=== PATIENT | male | born 1960 | race Caucasian/White ===

== ENCOUNTER 2020-02-01 01:44 | Emergency (ER) | payer OTHER ==
[2020-02-01] MEDS ORDERED: Sodium Chloride Irrig Solution 250 ML ONE (02:07)
== END 2020-02-01 02:16 ==
LOC: MADERS 01:44
DX: S61.412A Laceration without foreign body of left hand, initial encounter (principal); S61.411A Laceration without foreign body of right hand, initial encounter; F17.210 Nicotine dependence, cigarettes, uncomplicated; W22.8XXA Striking against or struck by other objects, initial encounter
CPT/HCPCS: 99283